=== PATIENT | female | born 1990 | race Caucasian/White ===

== ENCOUNTER 2019-05-24 18:33 | Inpatient (IN) ==
[2019-05-24] MEDS ORDERED: LR 500 ML IV ONE (18:38)
[2019-05-24] MEDS ORDERED: AMBIEN PO PRN (18:38)
[2019-05-24] MEDS ORDERED: PEPCID IV PRN (18:38)
[2019-05-24] MEDS ORDERED: BRETHINE SUBQ PRN (18:38)
[2019-05-24] MEDS ORDERED: PEPCID PO ONE (18:38)
[2019-05-24] MEDS ORDERED: REGLAN PO ONE (18:38)
[2019-05-24] MEDS ORDERED: PEPCID PO PRN (18:38)
[2019-05-24] MEDS ORDERED: ZOFRAN IV PRN (18:38)
[2019-05-24] MEDS ORDERED: KEFZOL 1 GM/D5W 1 GM/50 ML IVPB IV PRN (18:38)
[2019-05-24] MEDS ORDERED: TYLENOL PO PRN (18:38)
[2019-05-24] MEDS ORDERED: STADOL IV PRN ×3 (18:38)
[2019-05-24] MEDS ORDERED: CYTOTEC VAG ONE (18:38)
[2019-05-24] MEDS ORDERED: PITOCIN 30 UNITS/NS 30 UNIT/500 ML IV.SOLN IV SCH (18:45)
[2019-05-24 20:04] LABS: BASO# 0.06 X1000 (0.0-0.2); BASO% 0.5 % (0.0-0.8); EOS% 0.8 % (0.0-10.0); HEMATOCRIT 37.6 % (37.0-47.0); HEMOGLOBIN 12.7 g/dL (12.0-16.0); IMM GRAN# 0.22 X1000 (0.0-0.04); IMM GRAN% 1.8 % (0.0-0.5); LYMPH% 24.9 % (20.5-51.1); MCH 29.9 PG (27-31); MCHC 33.8 g/dL (33-37); MCV 88.5 FL (81-99); MONO# 0.86 X1000 (0.11-0.59); MONO% 7.1 % (1.7-9.3); MPV 10.7 FL (7.4-10.4); NEUT% 64.9 % (42.2-75.2); PLT 287 X1000 (130-400); RBC 4.25 XMIL (4.2-5.4); RDW 12.1 % (11.5-14.5); WBC 12.04 X1000 (4.8-10.8)
[2019-05-24] MEDS: LR 1,000 ML IV ONE (20:53)
--- NOTE | 2019-05-24 21:48 | HISTORY AND PHYSICAL ---
HISTORY OF PRESENT ILLNESS: Ms. Knapp is a 29-year-old, G1, P0, at 38 weeks and 6 days who presents to Labor and Delivery for a scheduled induction of labor. The patient reports good movement. Denies contractions, leakage of fluid or vaginal bleeding. Current is significant for abnormal quad screen noted in early 2nd trimester. Quad screen showed a Down syndrome risk of 1 to 3. Patient referred to [facility] and declined further testing diagnostic for screening. CURRENT MEDICATIONS: vitamins. PAST MEDICAL HISTORY: Bipolar, depression. The patient is stable. No medications. PAST SURGICAL HISTORY: Cervical LEEP procedure. [place] teeth extraction. GYNECOLOGICAL HISTORY: Denies STD exposure. Pap smear in September 2018 negative for intraepithelial lesions or malignancy. FAMILY HISTORY: Noncontributory. SOCIAL HISTORY: Denies alcohol, tobacco, or drug use. ALLERGIES: No known drug allergies. PHYSICAL EXAMINATION: VITAL SIGNS: Blood pressure 128/85, pulse rate 86, weight 153 pounds, height 5 feet 5 inches, body mass index 25.4 kg/m2. GENERAL: No acute distress. Alert, awake, oriented x3. CARDIOVASCULAR: Regular rate and rhythm. Positive S1, S2. RESPIRATORY: Clear to auscultation bilaterally. Negative rhonchi, rales or wheezing. ABDOMEN: Gravid, soft, nontender to palpation. EXTREMITIES: 1+ edema. No calf tenderness. VAGINAL EXAM: 1 cm dilated, 50% effaced, -3 station. LABORATORY: Type and screen A-positive. Negative antibodies, rubella immune, RPR nonreactive, HIV nonreactive, hepatitis B nonreactive, hepatitis C nonreactive. Drug screen negative. GBS group B strep negative. CURRENT LABORATORY: WBCs 12.04, hemoglobin 12.7, hematocrit 37.6, platelets 287,000. RPR nonreactive. ASSESSMENT: Ms. Knapp is a 29-year-old G 1 P 0 at 38 weeks and 6 days who presents to Labor and Delivery for scheduled induction of labor. PLAN: 1. Admit to Labor and Delivery for induction overnight. Obtain routine labor labs. 2. Continuous electronic monitoring. 3. Induction with Cytotec per vagina q.4 hours. 4. Patient counseled on benefits, risks, and alternatives to elective induction. Risks not limited to infection, bleeding, vaginal lacerations, and emergency delivery. The patient understands risk and agrees to procedure. 5. Estimated weight 8 pounds. 6. Anticipate vaginal delivery.
[2019-05-25] MEDS: CYTOTEC VAG SCH ×2 (01:33→08:31)
[2019-05-25 02:38] LABS: UR AMPHETAMINES QUAL NONE DETECTED (NONE DETECT); UR BARBITUATES QUAL NONE DETECTED (NONE DETECT); UR BENZODIAZEPIN QUAL NONE DETECTED (NONE DETECT); UR CANNABINOIDS QUAL NONE DETECTED (NONE DETECT); UR COCAINE QUAL NONE DETECTED (NONE DETECT); UR METHADONE QUAL NONE DETECTED (NONE DETECT); UR OPIATES QUAL NONE DETECTED (NONE DETECT); UR OXYCODONE QUAL NONE DETECTED (NONE DETECT); UR PCP QUAL NONE DETECTED (NONE DETECT)
[2019-05-25] MEDS: LR 1,000 ML IV ONE ×2 (06:40→10:24)
[2019-05-25] MEDS ORDERED: LR 1,000 ML IV ONE (07:09)
[2019-05-25] MEDS ORDERED: FENTANYL IV ONE (09:00)
[2019-05-25] MEDS ORDERED: FENTANYL-BUPIV-NS 500 MCG-0.125% 250 ML EPIDURAL SCH (09:00)
[2019-05-25] MEDS ORDERED: NAROPIN 0.2% INJ ONE (09:00)
--- NOTE | 2019-05-25 13:06 | PROVIDER PROGRESS NOTE ---
Progress Note Pt seen and examined. Denies CTX pain s/p epidural. +FM, -LOF, _VB VSS CAT I tracing 3 cm/70%/-2 29yo admitted for IOL at 39 wks gestation -Inductions with cytotec 0.25 mcg x 2 -AROM - clear fluid -Pitocin for augmentation -pain mgt with epidural -CEFM/TOCO -anticipate vaginal delivery
[2019-05-25] MEDS ORDERED: BICITRA PO PRN (13:43)
[2019-05-25] MEDS ORDERED: LR 1,000 ML IV SCH (14:00)
[2019-05-25] MEDS ORDERED: XYLOCAINE-MPF 1% INJ PRN ×2 (15:30→17:01)
[2019-05-25] MEDS ORDERED: MINERAL OIL TOP PRN (15:30)
[2019-05-25] MEDS ORDERED: PITOCIN IM PRN (17:01)
[2019-05-25] MEDS ORDERED: MINERAL OIL PO PRN (17:01)
[2019-05-25] MEDS ORDERED: BOOSTRIX VACCINE IM ONE (17:01)
[2019-05-25] MEDS ORDERED: PERI MEDS (DERMOPLAST/NUPERCAINAL/TUCKS) MISC PRN (17:01)
[2019-05-25] MEDS ORDERED: ATARAX PO PRN (17:01)
[2019-05-25] MEDS ORDERED: AMBIEN PO PRN (17:01)
[2019-05-25] MEDS ORDERED: BENADRYL PO PRN (17:01)
[2019-05-25] MEDS ORDERED: M-M-R II VACCINE SUBQ ONE (17:01)
[2019-05-25] MEDS ORDERED: HYDROXYZINE IM PRN (17:01)
[2019-05-25] MEDS ORDERED: BENADRYL IV PRN (17:01)
[2019-05-25] MEDS ORDERED: CYTOTEC PO PRN (17:01)
[2019-05-25] MEDS ORDERED: PITOCIN 20 UNITS/NS 20 UNITS/1,000 ML IV.SOLN IV SCH (17:15)
[2019-05-25] MEDS ORDERED: PITOCIN 30 UNITS/NS 30 UNIT/500 ML IV.SOLN IV SCH (17:15)
[2019-05-25] MEDS: PERICOLACE PO SCH (23:50)
[2019-05-26] MEDS: MOTRIN PO PRN ×2 (05:30→19:33)
[2019-05-26 06:09] LABS: HEMOGLOBIN 10.8 g/dL (12.0-16.0); MCH 29.9 PG (27-31); MCHC 32.7 g/dL (33-37); MCV 91.4 FL (81-99); MPV 10.5 FL (7.4-10.4); RBC 3.61 XMIL (4.2-5.4); RDW 12.2 % (11.5-14.5); WBC 15.52 X1000 (4.8-10.8)
[2019-05-26] MEDS: FERROUS SULFATE PO SCH (09:02)
[2019-05-26] MEDS: PERICOLACE PO SCH (19:33)
[2019-05-27] MEDS: PERICOLACE PO SCH (03:08)
[2019-05-27 07:50] VITALS: BP 119/78
[2019-05-27] MEDS: FERROUS SULFATE PO SCH (10:00)
== END 2019-05-27 12:45 | disposition home or self-care (01) | DRG 807 ==
LOC: LD 18:33
PROVIDERS: ADMIT Obstetrics & Gynecology; ATTEND Obstetrics & Gynecology